=== PATIENT | female | born 1950 | race Caucasian/White ===

== ENCOUNTER 2023-06-25 11:55 | Emergency (ER) | payer OTHER ==
[2023-06-25] MEDS ORDERED: DIPHTH,PERTUSS(ACELL),TET 0.5 ML DISP.SYRIN IM ONE ×2 (12:01→12:06)
[2023-06-25] MEDS ORDERED: ACETAMINOPHEN 500 MG TABLET (FP) PO ONE (12:01)
[2023-06-25] MEDS ORDERED: ACETAMINOPHEN 500 MG TABLET (FP) ONE (12:06)
[2023-06-25 12:07] VITALS: BP 154/97; PULSE 84; RESP 17; TEMP 97.8; BMI 26.4
== END 2023-06-25 13:37 | disposition home or self-care (01) ==
LOC: FER 11:55
PROC: 0HQGXZZ Repair Left Hand Skin, External Approach (ICD-10-PCS; principal; 2023-06-25)
PROC: 3E0234Z Introduction of Serum, Toxoid and Vaccine into Muscle, Percutaneous Approach (ICD-10-PCS; 2023-06-25)
PROC: 3E0234Z Introduction of Serum, Toxoid and Vaccine into Muscle, Percutaneous Approach (ICD-10-PCS; 2023-06-25)
DX: S61.317A Laceration without foreign body of left little finger with damage to nail, initial encounter (principal); W25.XXXA Contact with sharp glass, initial encounter
CPT/HCPCS: 12001-25; 73130-TC-LT-FY; 90471; 90715; 99283-25